=== PATIENT | female | born 1960 | race Caucasian/White ===

== ENCOUNTER → 2016-11-18 | Outpatient (CLI) | payer OTHER ==
--- NOTE | 2016-11-19 08:48 | MM ---
Reason for exam: screening (asymptomatic). Last mammogram was performed 1 year and 8 months ago. History: Patient is postmenopausal. Excisional biopsy of the left breast, 2010. Taking estrogen beginning at age 55. Physical Findings: A clinical breast exam by your physician is recommended on an annual basis and results should be correlated with mammographic findings. MG Screening Mammo w CAD Bilateral CC and MLO view(s) were taken. Prior study comparison: March 20, 2015, bilateral MG screening mammo w CAD. November 29, 2012, bilateral digital screening mammo w/CAD. The breast tissue is heterogeneously dense. This may lower the sensitivity of mammography. There is no discrete abnormality. No significant changes when compared with prior studies. ASSESSMENT: Negative, BI-RAD 1 RECOMMENDATION: Routine screening mammogram of both breasts in 1 year.
== END | disposition home or self-care (01) ==
LOC: RADMAMWWP 10:15
PROVIDERS: ATTEND Obstetrics & Gynecology
DX: Z12.31 Encounter for screening mammogram for malignant neoplasm of breast (principal)

== ENCOUNTER 2018-12-30 10:53 | Day surgery (SDC) | payer OTHER ==
[2018-12-28 15:30] VITALS: BMI 29.5
[~2018-12-30 10:53] MED LIST: LACTATED RINGERS 1,000 ML IV SCH; LIDOCAINE VISCOUS 300 MG/15 ML CUP MUCOUS MEM ONE; SODIUM CHLORIDE 0.9% 1,000 ML IV SCH
[2018-12-30 11:29] VITALS: TEMP 97.2
[2018-12-30] MEDS ORDERED: LIDOCAINE 1% 20 ML VIAL (10MG/ML) FOR IV START INTRADERMA ONE (11:31)
[2018-12-30] MEDS: ALBUTEROL NEB (CONC) 2.5 MG/0.5 ML INHALATION ONE ×2 (11:50→12:37)
[2018-12-30] MEDS: LIDOCAINE 2% (PF) 20 MG/ML 5 ML VIAL INHALATION ONE ×2 (11:50→12:37)
[2018-12-30] MEDS ORDERED: DEXTROSE 50% SYRINGE 50 ML IVP ONE (11:58)
[2018-12-30] MEDS ORDERED: LIDOCAINE 1% INJ 10MG/ML (20 ML MDV) ONE (12:38)
[2018-12-30] MEDS ORDERED: MIDAZOLAM 2 MG/2 ML VIAL ONE (12:38)
[2018-12-30] MEDS ORDERED: PROPOFOL 10 MG/ML 20 ML VIAL IV ONE (12:38)
[2018-12-30] MEDS ORDERED: LIDOCAINE 2% INJ 20 MG/ML INTRATRACH ONE (12:48)
[2018-12-30 13:08] VITALS: RESP 16
[2018-12-30 13:16] VITALS: BP 148/78; PULSE 86
[2018-12-30 15:57] LABS: Appearance,BF Cloudy; Color,BF Colorless; Nucleated Cells, Body Fluid 24 /uL; RBC, Body Fluid 14 /uL
[2018-12-30 16:24] LABS: Mononuclear WBC,Body Fluid 61 %; Polynuclear WBC,Body Fluid 33 %; Total Cells Counted,Body Fluid 100
--- NOTE | 2018-12-31 01:41 | OP ---
OPERATIVE REPORT OPERATIVE REPORT: Bronchoscopy and bronchoalveolar lavage of the right middle lobe and right lower lobe. PREOPERATIVE DIAGNOSIS: Chronic cough, exact etiology is not clear. POSTOPERATIVE DIAGNOSIS: Chronic cough and tracheomalacia. ANESTHESIA USED: IV conscious sedation by FLOOR TECH. PROCEDURE: The patient was prepared according to the bronchoscopy protocol. She was placed in the supine position. O2 was applied via Ventimask over her mouth. Before bronchoscopy and during the bronchoscopy, we monitored the O2 saturation continuously, blood pressure was intermittently monitored, and cardiac rhythm was continuously monitored. After adequate IV conscious sedation, the bronchoscope was inserted through the right naris down to the area of the vocal cords. The vocal cords were noted to be patent. No lesions noted over the vocal cords. Lidocaine was applied over the vocal cords, and the bronchoscope was advanced further down to the trachea. There was evidence of tracheomalacia, mild, then the bronchoscope was advanced further down, and thorough examination was done of the cain, right upper lobe, right middle lobe, right lower lobe, left upper lobe, lingula and left lower lobe. No evidence of any purulent secretions whatsoever. No evidence of any endobronchial tumors. No evidence of any bleeding noted in the airways. Then the bronchoscope was wedged in the right middle lobe, lavage of the right upper lobe was done, followed by a lavage of the right lower lobe. Fluid was obtained, sent for different diagnostic studies and cultures. The procedure was well tolerated, and no evidence of any immediate complications. MMODL / IJN: [id number] /
== END 2018-12-30 13:39 | disposition home or self-care (01) ==
LOC: ORWHC2ENDO 10:53
PROVIDERS: ATTEND Internal Medicine
DX: J39.8 Other specified diseases of upper respiratory tract (principal); R05 Cough; J45.991 Cough variant asthma; E11.9 Type 2 diabetes mellitus without complications; I10 Essential (primary) hypertension; J30.9 Allergic rhinitis, unspecified; K21.9 Gastro-esophageal reflux disease without esophagitis; E03.9 Hypothyroidism, unspecified; M19.90 Unspecified osteoarthritis, unspecified site; E66.9 Obesity, unspecified; Z68.29 Body mass index [BMI] 29.0-29.9, adult; Z82.5 Family history of asthma and other chronic lower respiratory diseases; Z82.49 Family history of ischemic heart disease and other diseases of the circulatory system; F32.9 Major depressive disorder, single episode, unspecified; Z87.891 Personal history of nicotine dependence; Z79.1 Long term (current) use of non-steroidal anti-inflammatories (NSAID); Z79.890 Hormone replacement therapy; Z79.4 Long term (current) use of insulin; Z79.899 Other long term (current) drug therapy
CPT/HCPCS: 87798 ×3; 87496; 87498; 87529; 89050; 87252; 87502; 87634; 87070; 87205; 87116; 87102; 87206; 31624; J2001 ×2; J2250; J2704

== ENCOUNTER → 2019-01-10 | Outpatient (CLI) | payer OTHER ==
[2019-01-10 20:09] LABS: Cat Epith & Dander IgE <0.10 kU/L; Dermato. farinae IgE <0.10 kU/L; Dog Dander IgE <0.10 kU/L
[2019-01-10 20:10] LABS: Cladosporian herbarum IgE <0.10 kU/L; Cockroach IgE <0.10 kU/L
[2019-01-10 20:11] LABS: Alternaria alternata IgE <0.10 kU/L; Aspergillus fumagatus IgE <0.10 kU/L; Birch IgE <0.10 kU/L; Maple (Box Elder) IgE <0.10 kU/L
[2019-01-10 20:12] LABS: Elm IgE <0.10 kU/L; Oak IgE <0.10 kU/L; Ragweed,Common IgE <0.10 kU/L
[2019-01-10 20:13] LABS: Red Top (Bentgrass) IgE <0.10 kU/L
== END | disposition home or self-care (01) ==
LOC: LABWHC1 11:18
PROVIDERS: ATTEND Internal Medicine
DX: J45.909 Unspecified asthma, uncomplicated (principal); R05 Cough
CPT/HCPCS: 36415; 82785; 85008; 86003